=== PATIENT | male | born 1955 | race Caucasian/White ===

== ENCOUNTER 2019-02-20 10:11 | Emergency (ER) | payer SELFPAY ==
[~2019-02-20 10:11] MED LIST: FLEXERIL OR; LORTAB5 OR; NO HOME MEDS
[2019-02-20 10:39] VITALS: BP 144/89
== END 2019-02-20 10:43 | disposition home or self-care (01) | DRG 605 ==
LOC: ED 10:11
PROC: 0HQGXZZ Repair Left Hand Skin, External Approach (ICD-10-PCS; principal; 2019-02-20)
DX: S61.412A Laceration without foreign body of left hand, initial encounter (principal); W45.8XXA Other foreign body or object entering through skin, initial encounter; Y93.89 Activity, other specified

== ENCOUNTER 2022-06-20 13:29 | Emergency (ER) | payer SELFPAY ==
[~2022-06-20] VITALS: Ht 170.2 cm; Wt 79.0 kg
[2022-06-20 13:35] VITALS: BP 148/98
[2022-06-20 14:00] VITALS: BP 135/90
[2022-06-20 14:30] VITALS: BP 130/99
[2022-06-20 16:23] VITALS: BP 130/99
== END 2022-06-20 16:13 | DRG 914 ==
LOC: ED 13:29
DX: S68.120A Partial traumatic metacarpophalangeal amputation of right index finger, initial encounter (principal); S68.122A Partial traumatic metacarpophalangeal amputation of right middle finger, initial encounter; S68.124A Partial traumatic metacarpophalangeal amputation of right ring finger, initial encounter; W31.2XXA Contact with powered woodworking and forming machines, initial encounter